=== PATIENT | male | born 1965 | race Caucasian/White ===

== ENCOUNTER 2025-05-17 16:52 | Emergency (ER) | payer OTHER, MEDICAID ==
[~2025-05-17] VITALS: Ht 177.8 cm; Wt 80.0 kg
[2025-05-17 17:05] VITALS: O2SAT 98
[2025-05-17 18:04] LABS: BASOPHILS % 0.7 % (0.0-2.0); EOSINOPHILS % 4.7 % (0.0-5.0); HEMATOCRIT. 43.0 % (42.0-52.0); HEMOGLOBIN. 14.3 g/dL (14.0-18.0); LYMPHOCYTES % 36.2 % (20.0-50.0); MEAN PLATELET VOLUME 9.3 fl (7.4-10.4); MONOCYTES % 9.8 % (2.0-8.0); NEUTROPHILS % 48.6 % (40.0-76.0); PLATELET 151 x1000/uL (130-400); RED BLOOD CELL COUNT 4.15 mill/uL (4.7-6.1); RED CELL DISTRIBUTION WIDTH 13.7 % (11.6-14.6)
[2025-05-17 18:25] LABS: CREATININE 1.0 mg/dL (0.6-1.3); UREA NITROGEN BLOOD 8 mg/dL (9-23)
[2025-05-17 18:51] VITALS: BP 165/82; PULSE 72; RESP 19; TEMP 35.7; O2SAT 99
== END 2025-05-17 19:59 | disposition left against medical advice (07) ==
LOC: ER 16:52
DX: R42 Dizziness and giddiness (principal); Z53.21 Procedure and treatment not carried out due to patient leaving prior to being seen by health care provider
CPT/HCPCS: 36415; 80048; 85025